=== PATIENT | male | born 1965 | race Caucasian/White ===

== ENCOUNTER 2023-07-02 07:54 | Outpatient (CLI) | payer OTHER, SELFPAY | END 2023-07-02 07:55 | disposition home or self-care (01) | LOC: NFLDREF 07-04 07:50 | PROVIDERS: PCP Physician Assistant Medical; Referring Provider Physician Assistant Medical; Visit Provider Physician Assistant Medical | DX: Z13.228 Encounter for screening for other metabolic disorders (principal); Z13.220 Encounter for screening for lipoid disorders; Z12.5 Encounter for screening for malignant neoplasm of prostate; Z13.21 Encounter for screening for nutritional disorder; Z13.29 Encounter for screening for other suspected endocrine disorder | CPT/HCPCS: 80053; 80061; 82607; 84443; G0103 ==

== ENCOUNTER 2023-11-01 08:00 | Outpatient (RCR) | payer OTHER, SELFPAY ==
--- NOTE | 2023-11-01 08:44 | PT.OPDN ---
[facility] Daily [facility] Daily Note Start: 10/10/23 12:07 Freq: Status: Active Protocol: Document 11/01/23 07:51 CJT (Rec: 11/01/23 08:43 CJT [id number]) E-signed By Sandip Dubose, PT PT OP Daily Progress Note Visit Information Note Type Daily Note Visit Number 3 Insurance Authorized Visits 100 Physician Authorized Visits eval and treat Insurance Information Recert Due Date 01/09/24 Insurance Name [employer] Medical Diagnosis R shoulder pain L shoulder pain Treating Diagnosis R shoulder pain L shoulder pain Referring Joshua Holliday PAC Subjective Preferred Name Jonas Subjective Shoulder feels about the same. Pt has been faithful with his HEP and has only missed one day of exercise so far. Home Exercise Home Exercise Comments Access Code: [email or web address] URL: [email or web address] Date: 10/11/2023 Prepared by: Sandip Dubose Exercises - Doorway Pec Stretch at 90 Degrees Abduction - 1-2 x daily - 7 x weekly - 30-45 seconds hold - Sidelying Shoulder ER with Towel and Dumbbell - 1 x daily - 7 x weekly - 2-3 sets - 20 reps - Prone Shoulder Extension - 1 x daily - 7 x weekly - 3 sets - 20 reps - 3 seconds hold - Full Plank - 1 x daily - 7 x weekly - 3 sets - 30-60 seconds hold Objective Other/Pertinent Objective R Shoulder ROM Flexion/Abduction/IR/ER - 170/ 170/T10/75 L Shoulder ROM Flexion/Abduction/IR/ER - 170/ 165/T12/75 R Shoulder Strength Flexion - 5/5 MMT Abduction - 5/5 MMT IR (neutral) - 5/5 MMT IR (90) - 5/5 MMT ER (neutral) - 5/5 MMT ER (90) - 4+/5 MMT Empty Can - 4+/5 MMT L Shoulder Strength Flexion - 5/5 MMT Abduction - 5/5 MMT IR (neutral) - 5/5 MMT IR (90) - 5/5 MMT ER (neutral) - 5/5 MMT ER (90) - 4+/5 MMT Empty Can - 4+/5 MMT R Scapular Strength Rhomboid - 4+/5 MMT Mid Trap - 4/5 MMT Lower Trap - 4/5 MMT L Scapular Strength Rhomboid - 4+/5 MMT Mid Trap - 4/5 MMT Lower Trap - 4/5 MMT Palpation: pt reports tenderness/pain with palpation to B UT, levator. Spurling's Compression: negative B Onslow's: positive L Crossover: positive B AC Compression: negative Pickard-Albin: positive L Whipple: negative Neers: negative Speeds: negative Crank: positive L Clunk: negative Functional Test Performed & Score Bottom's up KB carry KB OH carry TRX Row, high row + ER + press Patient Instructed in Risks/Benefits Yes Therapeutic Exercise Therapeutic Exercise Minutes (minutes) 32 Therapeutic Exercise: To Restore UBE x 3 minutes Functional Status KB bottom's up carry, neutral x 50 ft ea, 15# KB bottom's up carry, 90 degrees scaption x 50 ft ea, 15# KB OH Carry, 25# x 50 ft ea Supine KB press, 25# x 6 @ varying degrees of abduction * pain and clicking noted at 90 degrees abduction Incline KB press, 25# x 6 * pain at 90 degrees abduction Treatment Minutes Timed Code Treatment Minutes 32 Total Treatment Time 32 Billing Units Therapeutic Exercise Units 2 Assessment/Impression Assessment/Impression Joans has failed to see adequate progress in his shoulder symptoms after 3 weeks of therapy. Testing for exact pathology has been mixed so far although today Jonas is showing signs of RTC impingement and labral tearing with positive Pickard-Albin , crossbody, Onslow's and Crank. Each of these tests caused pain and/or clicking/ popping in pts L shoulder. Pt did have an injury to his L shoulder many years ago. He describes performing press behind his head when he had significant pain in his L shoulder. I do worry that Jonas may have experienced a RTC tear at that time and has spent the last 20+ years compensating, and this is what is making evaluation of his shoulder so difficult. Warren R shoulder seems to be improving slowly which is promising. At this time I would recommend referral for advanced imaging of Jonas's L shoulder as well as referral to our orthopedic department to review MRI results and determine best plan of action moving forward. We will hold Jonas's chart for additional 30 days in case he is in need of additional therapy. Plan of Care Physical Therapy Goals STG - To be completed in 2-3 weeks: 1. Pt will demonstrate improved shoulder IR to T6 bilaterally so that he may wash entire back in shower. 2. Pt will report reduction in shoulder pain by factor of 2 so that they may sleep without waking due to pain while shifting position in the night . LTG - To be completed in 6-8 weeks: 1. Pt to be I with HEP so that they may I manage progression of symptoms. 2. Pt will report ability to lay on either shoulder in bed without pain so that they may sleep throughout the night and wake well-rested with reduced mental fatigue during working hours. 3. Pt will demo full and pain free shoulder ROM and strength so that they may return to recreational exercise with their friends. 4. Pt will report ability to perform dumbbell bench press with 30# dumbbells without shoulder pain so that he may return to his previous weight- lifting regimen. Daily Plan of Care Continue per POC
== END 2024-02-29 23:59 | disposition home or self-care (01) ==
PROVIDERS: PCP Physician Assistant Medical; Visit Provider Physician Assistant Medical
DX: M25.511 Pain in right shoulder (principal); M25.512 Pain in left shoulder; Z51.89 Encounter for other specified aftercare
CPT/HCPCS: 97110; 97140; 97161

== ENCOUNTER 2023-11-20 19:37 | Emergency (ER) | payer OTHER, SELFPAY ==
[2023-11-20 19:51] VITALS: BP 145/73; PULSE 87; RESP 20; TEMP 36.8; O2SAT 99; BMI 32.1
--- NOTE | 2023-11-20 20:14 | ED_ITS ---
HPI - General Adult General Chief complaint: Heartburn/Gastritis Stated complaint: Abdominal pain Time Seen by Provider: 11/20/23 20:01 Source: patient Mode of arrival: ambulatory Limitations: no limitations History of Present Illness HPI narrative: 58-year-old male coming in today complaining of worsening heart burn. Patient states he has had heartburn for very long time and generally he will have it for a night here in there and it will go away. He describes it as a burning sensation in the central- left lower chest. He states that it gets worse when he lays down at night. He knows that after he eats he needs to sit up for a couple of hours before he lays down or he does get symptoms. Patient states that he exercises regularly by walking, biking or doing weightlifting almost daily. He denies these symptoms while he is exercising. He is not short of breath when he is exercising. He denies any recent illness, cough, fevers or chills. He has not been vomiting. He comes in today because he had this episode of heartburn yesterday and today and this is very unusual for him to have heartburn 2 days in a row. Patient does not take any antacids. He denies any unintentional weight loss. Patient is currently asymptomatic. Related Data Home Medications ?Medication ?Instructions ?Recorded ?Confirmed No Known Home Medications 11/20/23 11/20/23 Allergies Allergy/AdvReac Type Severity Reaction Status Date / Time No Known Drug Allergies Allergy Verified 11/20/23 19:53 Review of Systems Status of ROS: Reports: 10 or more systems reviewed and unremarkable except as noted in History and below [facility] Medical History Hypertriglyceridemia ?E78.1 - Pure hyperglyceridemia (ICD-10) Peripheral neuropathy ?G62.9 - Polyneuropathy, unspecified (ICD-10) Lumbosacral radiculopathy at S1 ?M54.17 - Radiculopathy, lumbosacral region (ICD-10) Elevated blood pressure reading ?R03.0 - Elevated blood-pressure reading, without diagnosis of hypertension (ICD-10) Surgical History History of nasal septoplasty (~2015) ?Z98.890 - Other specified postprocedural states (ICD-10) History of colonoscopy ?Z98.890 - Other specified postprocedural states (ICD-10) Family History Maternal Grandfather Colon cancer Other Diabetes Social History What is your current living situation?: I presently have a place to live In the past 12 months, utilities in danger of being shut off: no In past 12 months, lack of transportation kept you from medical appts, meetings, work, or getting things needed for daily living: no In the past 12 mos, have been you worried that your food would run out before you had money to buy more?: never true In the past 12 mos, the food you bought just didn't last and you didn't have money to buy more?: never true How often does anyone, including family, friends and others, physically hurt you : never How often does anyone, including family, friends and others, insult or talk down to you: never How often does anyone, including family, friends and others, threaten you with harm: never How often does anyone, including family, friends and others, scream or curse at you: never Little interest or pleasure in doing things: several days Feeling down, depressed, or hopeless: several days Exam Narrative: Exam Narrative: Well-nourished well-developed patient in no acute distress. Alert and oriented. Answers questions appropriately. Mood and affect are appropriate. Thoughts are goal oriented and rational. No tangential or magical thinking noted. Patient speaks in full sentences without needing to catch his breath. HEENT: Normocephalic atraumatic. Pupils are equally round reactive to light. Extraocular muscles are intact. Conjunctivae are moist without any icterus noted. Moist mucous membranes. Posterior pharynx is normal. Cardiovascular: Heart is regular rate and rhythm S1 and S2 are present without any murmurs. Lungs: Clear to auscultation bilaterally no wheezes rhonchi or rales are appreciated. Patient takes deep breaths without any discomfort. Abdomen: Soft and nontender nondistended with normal bowel sounds. Skin: Well perfused without any obvious rashes. Const: Vital Signs, click to edit/add: Vital Signs - 24 hr 11/20/23 19:51 Temperature 98.2 F Pulse Rate [Right Pulse Oximeter] 87 Respiratory Rate 20 Blood Pressure [Ri ght Upper Arm] 145/73 H Pulse Oximetry 99 Oxygen Delivery Me thod Room Air Course Vital Signs Vital signs: Initial Vital Signs Temperature 98.2 F 11/20/23 19:51 Temperature Source Temporal Artery Scan 11/20/23 19:51 Pulse Rate 87 11/20/23 19:51 Respiratory Rate 20 11/20/23 19:51 Blood Pressure 145/73 H 11/20/23 19:51 Blood Pressure Mean 97 11/20/23 19:51 Blood Pressure Position Sitting 11/20/23 19:51 Pulse Oximetry 99 11/20/23 19:51 Oxygen Delivery Method Room Air 11/20/23 19:51 Vital Signs Temperature 98.2 F 11/20/23 19:51 Pulse Rate 87 11/20/23 19:51 Respiratory Rate 20 11/20/23 19:51 Blood Pressure 145/73 H 11/20/23 19:51 Pulse Oximetry 99 11/20/23 19:51 Oxygen Delivery Method Room Air 11/20/23 19:51 Temperature 98.2 F 11/20/23 19:51 Pulse Rate 87 11/20/23 19:51 Respiratory Rate 20 11/20/23 19:51 Blood Pressure 145/73 H 11/20/23 19:51 Pulse Oximetry 99 11/20/23 19:51 Oxygen Delivery Method Room Air 11/20/23 19:51 Medical Decision Making MDM Narrative Medical decision making narrative: 58-year-old male with what sounds like very classic acid reflux symptoms. Recommend he start taking Zantac as needed or daily omeprazole if he feels like his symptoms are getting more frequent. Given the fact that the patient exercises regularly and does vigorous cardiovascular exercise without any deficits such as shortness of breath or chest pain, I do not think further workup is necessary today. Patient will follow-up with primary care provider as needed. Discharge Plan Discharge Clinical Impression: Gastroesophageal reflux disease Patient Disposition: Home, Self-Care Condition: Stable Additional Instructions: Start taking Zantac(famotidine) when needed/as directed. If you notice that your taking this daily or even every other day, recommend switching to a daily medication such as Prilosec(omeprazole). Both of these medications can be purchased [id number]. Follow-up with your primary care provider if you are not improving. Prescriptions: No Action No Known Home Medications Follow Up/Referrals: Joshua Herrera PA-C [Primary Care Provider] - Stand Alone Forms: [employer] Info Instructions
== END 2023-11-20 20:29 | disposition home or self-care (01) ==
LOC: ED 20:27
PROVIDERS: Emergency Provider Family Medicine; PCP Physician Assistant Medical
DX: K21.9 Gastro-esophageal reflux disease without esophagitis (principal)
CPT/HCPCS: 99282; 99283

== ENCOUNTER 2023-12-19 07:52 | Outpatient (CLI) | payer OTHER, SELFPAY ==
--- NOTE | 2023-12-19 08:15 | CRLHL7_ITS ---
For Patients: As a result of the 21st Century Cures Act, medical imaging exams and procedure reports are released immediately into your electronic medical record. You may view this report before your referring provider. If you have questions, please contact your health care provider. EXAM: MRI OF THE LEFT SHOULDER WITHOUT CONTRAST CLINICAL INDICATION: Chronic left shoulder pain. COMPARISON PLAIN FILMS: None available at time of interpretation. COMPARISON CROSS-SECTIONAL IMAGING STUDIES: None available at time of interpretation. TECHNICAL: Axial, sagittal oblique and coronal oblique T1, PD, PD FS and T2-weighted images. Shoulder surface coil. FINDINGS: ROTATOR CUFF TENDONS AND MUSCLES AND DELTOID: Supraspinatus: Mild tendinopathy. No tendon tear. No muscle atrophy or edema. Infraspinatus: Mild tendinopathy. No tendon tear. No muscle atrophy or edema. Subscapularis: Mild tendinopathy. No tendon tear. No muscle atrophy or edema. Teres Minor: No tendinosis, tendon tearing, muscle atrophy or muscle edema. Deltoid: No muscle atrophy or edema. BURSA: Subacromial-subdeltoid: No abnormal bursal edema, thickening or bursal fluid. BICEPS TENDON, LONG HEAD: No tendon tear or tendinopathy. No medial subluxation. However there is a moderate amount of fluid in the long head of the biceps tendon sheath without additional fluid in the glenohumeral joint. The fluid could be due to a small glenohumeral joint effusion, however findings can also be associated with tenosynovitis. CORACOACROMIAL ARCH: Acromial Morphology: Type 1 acromial morphology. Mild lateral downsloping of the acromion. Small subacromial enthesophyte. No os acromiale. Acromiohumeral Interval: Normal. Coracohumeral Interval: Normal. ACROMIOCLAVICULAR JOINT REGION: AC Joint: Moderate osteoarthropathy. No inferior marginal osteophytes. Ligaments: The coracoclavicular ligaments are intact. GLENOHUMERAL JOINT: Joint space: No effusion or synovitis. Humeral Head Articular Cartilage: No focal cartilage defect or underlying subchondral marrow changes. Glenoid Articular Cartilage: No focal cartilage defect or underlying subchondral marrow changes. Labrum: No labral tear or paralabral cyst. Alignment: Maintained. Capsule: No capsular edema or abnormal capsular thickening. OSSEOUS STRUCTURES: No fracture, marrow edema or marrow replacement process. OTHER FINDINGS: There is no abnormality within the suprascapular or spinoglenoid notches nor within the quadrilateral space. No axillary adenopathy or mass. IMPRESSION: 1. Mild supraspinatus, infraspinatus and subscapularis tendinopathy. 2. Fluid in the long head of the biceps tendon sheath. Findings could be due to a glenohumeral joint effusion or tenosynovitis. 3. Coracoacromial arch configuration can be associated with impingement. Dictated by Gio Sevilla MD @ 12/19/2023 12:03:50 PM (Electronically Signed)
--- NOTE | 2023-12-19 09:00 | CRLHL7_ITS ---
For Patients: As a result of the 21st Century Cures Act, medical imaging exams and procedure reports are released immediately into your electronic medical record. You may view this report before your referring provider. If you have questions, please contact your health care provider. EXAM: MRI OF THE RIGHT SHOULDER WITHOUT CONTRAST CLINICAL INDICATION: Chronic shoulder pain. COMPARISON PLAIN FILMS: None available at time of interpretation. COMPARISON CROSS-SECTIONAL IMAGING STUDIES: None available at time of interpretation. TECHNICAL: Axial, sagittal oblique and coronal oblique T1, PD, PD FS and T2-weighted images. Shoulder surface coil. FINDINGS: ROTATOR CUFF TENDONS AND MUSCLES AND DELTOID: Supraspinatus: Mild tendinopathy. No tendon tear. No muscle atrophy or edema. Infraspinatus: No tendinosis, tendon tearing, muscle atrophy or muscle edema. Subscapularis: No tendinosis, tendon tearing, muscle atrophy or muscle edema. Teres Minor: No tendinosis, tendon tearing, muscle atrophy or muscle edema. Deltoid: No muscle atrophy or edema. BURSA: Subacromial-subdeltoid: No abnormal bursal edema, thickening or bursal fluid. BICEPS TENDON, LONG HEAD: The long head of the biceps tendon is appropriately positioned within the bicipital groove without tendon subluxation or dislocation. The biceps kim mechanism is intact. The biceps anchor appears grossly intact. There is no significant tendinosis or tendon tearing. CORACOACROMIAL ARCH: Acromial Morphology: Type 2 acromial morphology. Mild to moderate lateral downsloping of the acromion. Small subacromial enthesophyte. No os acromiale. Acromiohumeral Interval: Normal. Coracohumeral Interval: Normal. ACROMIOCLAVICULAR JOINT REGION: AC Joint: Prominent arthropathy at the acromioclavicular joint with small inferior marginal osteophytes. Ligaments: The coracoclavicular ligaments are intact. GLENOHUMERAL JOINT: Joint space: Small joint effusion. Minimal synovitis. No loose body. Humeral Head Articular Cartilage: Mild chondral fissuring in the central humeral head. Glenoid Articular Cartilage: No focal cartilage defect or underlying subchondral marrow changes. Labrum: No labral tear or paralabral cyst. Alignment: Maintained. Capsule: No capsular edema or abnormal capsular thickening. OSSEOUS STRUCTURES: No fracture, marrow edema or marrow replacement process. OTHER FINDINGS: There is no abnormality within the suprascapular or spinoglenoid notches nor within the quadrilateral space. No axillary adenopathy or mass. IMPRESSION: 1. Mild supraspinatus tendinopathy. 2. Mild chondromalacia in the humeral head. 3. Small glenohumeral joint effusion with minimal synovitis. 4. Coracoacromial arch configuration can be associated with impingement. Dictated by Gio Sevilla MD @ 12/19/2023 12:06:40 PM (Electronically Signed)
== END 2023-12-19 07:53 | disposition home or self-care (01) ==
LOC: MRI 07:53
PROVIDERS: PCP Physician Assistant Medical; Visit Provider Physician Assistant Medical
DX: M25.511 Pain in right shoulder (principal); M75.101 Unspecified rotator cuff tear or rupture of right shoulder, not specified as traumatic; M94.211 Chondromalacia, right shoulder; M25.411 Effusion, right shoulder; M75.102 Unspecified rotator cuff tear or rupture of left shoulder, not specified as traumatic; M25.512 Pain in left shoulder; G89.29 Other chronic pain
CPT/HCPCS: 73221

== ENCOUNTER 2025-01-22 18:38 | Outpatient (CLI) | payer OTHER, SELFPAY ==
--- NOTE | 2025-01-22 19:00 | MR_ITS ---
[address] [address] Phone:?[phone] Fax:?[phone] Referring Physician Information: [address] [facility] [address] Phone:?[phone] Fax:?[phone] Patient:Efe Dunlap D.O.B:?1965 Sex:?Male Phone:?[phone] [facility] MRN:?[id number] Exam Date:?01/22/2025 EXAM: MRI of the RIGHT SHOULDER, without contrast CLINICAL INFORMATION: Male, 59 years old, with right shoulder pain. INDICATION: Evaluate for internal derangement. PRIOR SURGERY: None reported. PLAIN FILMS: Shoulder radiographs dated 01/13/2025. COMPARISONS: Right shoulder MRI dated 12/13/2023. TECHNICAL INFORMATION: Using a 1.5T MR scanner and a localizing surface coil: coronal obliques: PD, T2, STIR sagittal obliques: PD, T2 axials: PD, T2 SEDATION: None CONTRAST: None FINDINGS: Bones: Proximal humerus: No fracture or marrow edema/pathology. No humeral Hill-Sachs or reverse Hill-Sachs lesion/impaction or contusion. Glenoid: No fracture or marrow edema/pathology. No osseous Bankart lesion. Rotator cuff and muscles/tendons: Supraspinatus: Mild-moderate supraspinatus tendinopathy, without tendon tear or muscle atrophy. Infraspinatus: Mild infraspinatus tendinopathy, without tendon tear or muscle atrophy. Teres minor: No tendinopathy, tear or atrophy. Subscapularis: Mild tendinopathy of the superior distal subscapularis, without tendon tear or muscle. Deltoid: No strain or atrophy. Coracoacromial arch: Acromion morphology: The acromion has type II morphology. No discrete subacromial osseous spur or os acromiale. Acromiohumeral space: The acromiohumeral space measures 5.9 mm at its narrowest point (osseous distance). Coracohumeral space: The coracohumeral space is within normal limits. Acromioclavicular joint: Joint: Moderate marked AC joint arthropathy, with extensive reactive osseous changes (coronal STIR series 5 image 14 and axial PD series 3 image 8). However, there is no evidence of impingement at the AC joint. Ligaments: Coracoclavicular ligaments are intact. Bursae: Subacromial-subdeltoid: Mild subacromial subdeltoid bursal thickening/edema. Subcoracoid: No convincing subcoracoid bursal thickening/bursitis. Biceps tendon: The long head of the biceps tendon is present within the bicipital groove. The intra-articular and extra-articular segments are intact without tendinosis, tenosynovitis, or displacement. Glenohumeral joint: Effusion/cyst: Small glenohumeral joint effusion. Articular cartilage: Humeral head: No osteochondral abnormalities. Glenoid: No osteochondral abnormalities. Loose bodies: No discrete intra-articular body within the joint. Labrum:?No discrete labral tear or paralabral cyst identified on this non- arthrographic study. Inferior glenohumeral ligament/axillary pouch:?Moderate thickening of inferior capsuloligamentous structures apparent coronal PD series 6 images 18-24). Additionally, there is soft tissue thickening throughout the rotator interval (sagittal T2 series 9 images 9-15). IMPRESSION: 1. Mild-moderate supraspinatus and mild infraspinatus & subscapularis tendinopathy. No rotator cuff tendon tear. These findings appear unchanged compared to the prior study dated 12/19/2023. 2. Moderate-marked AC joint arthropathy, with extensive reactive osseous changes. These findings are unchanged. 3. Mild narrowing of the acromiohumeral space with mild subacromial subdeltoid bursal inflammation. 4. Findings in keeping with any clinical symptoms of adhesive capsulitis, unchanged. 5. No tendinopathy, displacement, or tear of the biceps long head tendon. 6. No labral tear or paralabral cyst. 7. No full-thickness chondral defect or evidence of glenohumeral joint osteoarthritis. BC Electronically signed on 01/23/2025 9:04:00 AM by Gopal Corrales M.D.
== END 2025-01-22 18:39 | disposition home or self-care (01) ==
LOC: MRI 18:38
PROVIDERS: PCP Physician Assistant Medical; Visit Provider Physician Assistant Surgical
DX: M67.911 Unspecified disorder of synovium and tendon, right shoulder (principal); M19.011 Primary osteoarthritis, right shoulder; M75.51 Bursitis of right shoulder; M75.01 Adhesive capsulitis of right shoulder
CPT/HCPCS: 73221

== ENCOUNTER 2025-03-04 08:26 | Day surgery (SDC) | payer OTHER, SELFPAY ==
[2025-03-04] VITALS (19 sets, daily range): BP systolic 103–146; BP diastolic 56–85; PULSE 60–87; RESP 12–20; TEMP 36.4–37.3; O2SAT 91–98; BMI 37.0
[2025-03-04] MEDS: EPINEPHrine 1 MG in SODIUM CHLORIDE IRRIG SOLUTION 3,000 ML 9003 MG IRRIGATION ×2 (08:45→09:05)
--- NOTE | 2025-03-04 09:08 | W.PM.H&PU ---
History & Physical Update History & Physical Update H&P Reviewed and patient assessed: No changes noted
[2025-03-04] MEDS: SODIUM CHLORIDE 0.9 % (FLUSH) 10 ML SYRINGE IVF (09:14)
[2025-03-04] MEDS: LACTATED RINGERS 1000 ML 1,000 ML 100 ML IV (09:15)
[2025-03-04] MEDS: MIDAZOLAM HCL 1 MG/ML inj IVP (10:05)
--- NOTE | 2025-03-04 10:15 | SUR.PREOP ---
TIME?OUT:?1004, right shoulder PT/RN/MDA?VERIFICATION?OF?SURGICAL?SITE,?PROCEDURE,?AND?CONSENT OBTAINED?PRIOR?TO?INVASIVE?PROCEDURE.
--- NOTE | 2025-03-04 10:20 | W.PM.NB ---
Nerve Block Nerve Block Time Seen by Provider: 10:18 Date Seen: 03/04/25 Type of block requested by surgeon for post-operative analgesia: supraclavicular Side: right Time out performed: Yes Verification of patient name: Yes Verification of date of : Yes Site marking: site marked Name of person performing procedure: Arnold Segundo Continuous monitoring Was continuous monitoring of O2 sat, B/P, cardiac cath technician, recorded every 15 minutes?: Yes Procedure Checklist: sterile prep, needles and gloves Ultrasound guided. Images saved: Yes Medications given in 5ml increments after negative aspiration: Ropivicaine %: 0.5 mL: 20 Needle gauge: 20 Precedex (mcg): 25 Patient tolerated procedure well: Yes Additional comments: Injected in 5 mL increments after negative aspiration Block Charges Block Charge (with Pro Fee): Brachial Plexus Use of Ultrasound Machine for Block: Yes- US Guidance/pain block
[2025-03-04] MEDS: EPINEPHrine 1 MG in SODIUM CHLORIDE IRRIG SOLUTION 3,000 ML 4500 MG IRRIGATION (11:30)
--- NOTE | 2025-03-04 11:57 | PM.ORPRC ---
Procedure Note Date of procedure: 03/04/25 Procedure: PREOPERATIVE DIAGNOSES: 1. Right shoulder subacromial impingement syndrome. 2. Right shoulder AC joint osteoarthritis, primary, severe POSTOPERATIVE DIAGNOSES: 1. Right shoulder subacromial impingement syndrome. 2. Right shoulder AC joint osteoarthritis, primary, severe NAME OF OPERATION: 1. Right shoulder arthroscopic distal clavicle excision. 2. Right shoulder arthroscopic subacromial decompression/partial acromioplasty SURGEON: Jeremiah Garza MD [employer] ATTENDANT: Alejandro Wu PA-C. Of note, an lpn medical assistant was critical for this case to aide in patient positioning, suture manipulation, arm positioning, instrument positioning, and closure. ANESTHESIA: General plus preoperative supraclavicular block. IMPLANTS: None COMPLICATIONS: None evident INDICATIONS: The patient is a pleasant, 59-year-old male who has experienced right shoulder pain that has been increasing in recent time. Physical exam and imaging were consistent with a subacromial impingement syndrome and AC arthrosis. MRI was obtained indeed confirmed substantial AC joint capsular hypertrophy and edema of the distal clavicle. Given their findings, as well as the pain, and inadequate response to nonoperative management, recommendation was made for surgery. FINDINGS: Exam under anesthesia revealed stable shoulder with excellent range of motion. The diagnostic arthroscopy revealed healthy chondral surfaces of the glenohumeral joint. The Subscapularis tendon was intact with healthy attachment. The long head of the biceps tendon was intact. The rotator cuff tendon was found to be intact with a normal sail sign and no evidence of partial-thickness or full-thickness tearing. The labrum was intact and healthy without evidence of degenerative tearing or fraying. No loose bodies were identified within the pouch or subscapularis recess. PROCEDURE: Following a thorough discussion of risks, benefits, and alternatives, consent was obtained and the right shoulder was marked. The patient was brought to the operating room and placed supine on the operating table. Induction of anesthesia was completed after preoperative supraclavicular block was administered in preop holding. Appropriate time out was performed identifying proper patient, site, and procedure. 2 g IV Ancef was administered within 1 hour of incision preoperatively. The right upper extremity was prepped and draped in the appropriate sterile fashion using ChloraPrep prep. This was after the patient was positioned in the beach chair with their head in neutral alignment and all bony prominences well padded. The shoulder was insufflated with 20mL of normal saline via an 18g spinal needle from a posterior approach. An 11 blade skin incision allowed a blunt trochar to be inserted and diagnostic arthroscopy to be performed with the findings as noted above. An anterior portal was established with an outside in technique. This allowed the probe to be inserted and confirm the diagnostic arthroscopic findings. We then went into the subacromial space. This revealed abundant bursitis and again a hypertrophied AC joint capsule. The shaver and [place] cautery device were then inserted and allowed debridement of the subacromial bursa/subdeltoid bursa. Following this, the subacromial decompression/partial acromioplasty was performed with a 5.5 mm bur. This bur was then utilized for distal clavicle excision removing approximately 8 mm of distal clavicle. The camera was visualized within the AC joint space and found that the bone was completely removed from the more caudal to the more cephalad position confirming release/excision while sparing the superior and posterior capsule. Thereafter, the shaver was reinserted into the subacromial space and all remaining bony debris was excised. Instruments removed, excess fluid was drained, closure performed with 4 Monocryl and Steri-Strips. Dressings were applied. Sling was applied. The patient was awoken from anesthesia and transferred to the PACU in stable condition. PLAN: 1. Elbow, forearm, wrist and digit range of motion as tolerated. 2. Encouraged ice. 3. Oxycodone for pain as needed. 4. Sling much of the time except for ROM and showering until pain permits greater motion PRN 5. Follow up with me in 1-2 weeks for wound check.
--- NOTE | 2025-03-04 12:13 | P.ANES_ITS ---
Anesthesia Charges Start Date/Time Anesthesia Start Date: 03/04/25 Anesthesia Start Time: 10:26 Stop Date/Time Anesthesia Stop Date: 03/04/25 Anesthesia Stop Time: 12:12 Coding CPT Codes CPT Codes: ANESTH SURGERY OF SHOULDER - 45250 ([id number]) P2 - PATIENT W/MILD SYST DISEASE, QZ - MANAGER CARD SVC W/O [employer] PROFILER BY
--- NOTE | 2025-03-04 12:13 | W.ANESCHARGE ---
Anesthesia Charges Start Date/Time Anesthesia Start Date: 03/04/25 Anesthesia Start Time: 10:26 Stop Date/Time Anesthesia Stop Date: 03/04/25 Anesthesia Stop Time: 12:12 Coding CPT Codes CPT Codes: ANESTH SURGERY OF SHOULDER - 67333 ([id number]) P2 - PATIENT W/MILD SYST DISEASE, QZ - GLASS BLOWING LATHE OPERATOR SVC W/O TOOTH CUTTER PINION BY
[2025-03-04] MEDS: ONDANSETRON 2 MG/ML inj 4 MG IVP (12:23)
--- NOTE | 2025-03-04 12:55 | SUR.PHASEI ---
patient met discharge criteria per anesthesia
[2025-03-04] MEDS: ACETAMINOPHEN 500 MG TABLET PO (13:54)
--- NOTE | 2025-03-04 14:35 | SUR.PHASEII ---
Pt verbalized ready for discharge. VSS. wheelchair ride out to car with RN and son.
== END 2025-03-04 14:25 | disposition home or self-care (01) ==
PROVIDERS: PCP Physician Assistant Medical; Visit Provider Orthopaedic Surgery Sports Medicine
PROC: (CPT 29805; principal; 2025-03-04 10:30)
DX: M75.41 Impingement syndrome of right shoulder (principal); M19.011 Primary osteoarthritis, right shoulder; G89.18 Other acute postprocedural pain
CPT/HCPCS: 29824; 29826; 01630; 64415; 76942; A9270; J0169; J0330; J0690; J1100; J2250; J2371; J2405; J2704; J2795; J3010; J7120; L3670